=== PATIENT | male | born 1985 | race African-American/Black ===

== ENCOUNTER 2018-08-12 20:13 | Emergency (ER) | payer MEDICAID ==
[~2018-08-12] VITALS: Ht 162.6 cm; Wt 80.3 kg
[2018-08-12 21:03] LABS: APPEARANCE,URINE CLEAR; BILIRUBIN, URINE NEGATIVE (NEGATIVE); GLUCOSE, URINE (UA) NEGATIVE (NEGATIVE); KETONES,URINE 1+ (NEGATIVE); LEUKOCYTE ESTERASE ,URINE 1+ (NEGATIVE); NITRITE,URINE NEGATIVE (NEGATIVE); PH,URINE 6 (4.5-8.0); PROTEIN,URINE 1+ (NEGATIVE); UROBILINOGEN,URINE 4 MG/DL (0.0-1.0)
[2018-08-12 21:04] LABS: COLOR,URINE YELLOW
--- NOTE | 2018-08-12 21:26 | Emergency Room Report ---
History of Present Illness General Chief Complaint: Generalized Weakness Source: Patient Present Illness HPI This patient states that for the past 2 weeks he has had generalized fatigue. He states that he has been working and is okay while he is at work. However, when he gets home he is tired and fatigued constantly. He denies recent illness. He denies body aches. He denies fever or chills. He denies nausea or vomiting. He denies abdominal pain. He denies dysuria or hematuria. He denies any trauma or recent stress. He does use marijuana regularly and alcohol regularly but denies any other illicit drugs such as cocaine or methamphetamine. He has no other complaints. Allergies: Coded Allergies: No Known Allergies (Unverified , 05/16/16) Patient History Past Medical History: none, see triage record, old chart reviewed, other - Bronchitis Social History: Reports: smoking, alcohol use, drug use - THC Reviewed Nursing Documentation: PMH: Agreed; PSxH: Agreed Nursing Documentation-PMH Past Medical History: No History, Except For Review of Systems All Other Systems: negative except mentioned in HPI Physical Exam Vital Signs Date Time Temp Pulse Resp B/P (MAP) Pulse Ox O2 Delivery O2 Flow Rate FiO2 08/12/18 20:27 97.9 83 16 132/80 96 Room Air Sp02 EP Interpretation: reviewed, normal General Appearance: no apparent distress, alert, GCS 15, non-toxic Head: normocephalic, atraumatic Eyes: bilateral eye normal inspection, bilateral eye PERRL ENT: hearing grossly normal, normal pharynx, no angioedema, normal voice Neck: full range of motion, supple/symm/no masses Respiratory: chest non-tender, lungs clear, normal breath sounds, speaking full sentences Cardiovascular #1: regular rate, rhythm, no edema Gastrointestinal: normal bowel sounds, non tender, soft, non-distended, no guarding, no rebound Rectal: deferred Musculoskeletal: back normal, gait/station normal, normal range of motion, non- tender Neurologic: alert, oriented x3, responsive, motor strength/tone normal, sensory intact, speech normal Psychiatric: judgement/insight normal, memory normal, mood/affect normal, no suicidal/homicidal ideation Skin: normal color, no rash, warm/dry, well hydrated Medical Decision Making Diagnostic Impression: Primary Impression: Fatigue ER Course Patient complains of fatigue. I'm unsure of the etiology of this. Possibly depression or viral syndrome. Regardless, basic laboratory workup to include CBC, CMP, thyroid function tests and EKG are unremarkable. There is no evidence of anemia, left related abnormality, hepatitis, hypothyroidism or arrhythmia. The patient is using marijuana and alcohol regularly. Regardless, no emergency medical condition is identified. The patient instructed to follow- up with his primary care physician for further evaluation and treatment. The patient is given close return precautions and follow-up instructions. Laboratory Tests Test 08/12/18 20:35 08/12/18 21:10 Urine Color Yellow Urine Appearance Clear Urine pH 6 (4.5-8.0) Urine Specific [place] 1.020 (1.005-1.035) Urine Protein 1+ (NEGATIVE) H Urine Glucose (UA) Negative (NEGATIVE) Urine Ketones 1+ (NEGATIVE) H Urine Blood Negative (NEGATIVE) Urine Nitrite Negative (NEGATIVE) Urine Bilirubin Negative (NEGATIVE) Urine Urobilinogen 4 MG/DL (0.0-1.0) H Urine Leukocyte Esterase 1+ (NEGATIVE) H Urine RBC 0-2 /HPF (0 - 0) H Urine WBC 2-4 /HPF (0 - 0) Urine Squamous Epithelial Cells None /LPF (NONE/OCC) Urine Bacteria None /HPF (NONE) Urine Mucus Many /LPF (NONE/OCC) H Urine Opiates Screen Negative (NEGATIVE) Urine Barbiturates Screen Negative (NEGATIVE) Phencyclidine (PCP) Screen Negative (NEGATIVE) Urine Amphetamines Screen Negative (NEGATIVE) Urine Benzodiazepines Screen Negative (NEGATIVE) Urine Cocaine Screen Negative (NEGATIVE) Urine Marijuana (THC) Screen Positive (NEGATIVE) H White Blood Count 10.7 K/UL (4.8-10.8) Red Blood Count 5.73 M/UL (4.70-6.10) Hemoglobin 13.9 G/DL (14.2-18.0) L Hematocrit 43.1 % (42.0-52.0) Mean Corpuscular Volume 75 FL (80-99) L Mean Corpuscular Hemoglobin 24.3 PG (27.0-31.0) L Mean Corpuscular Hemoglobin Concent 32.3 G/DL (32.0-36.0) Red Cell Distribution Width 12.3 % (11.6-14.8) Platelet Count 260 K/UL (150-450) Mean Platelet Volume 7.0 FL (6.5-10.1) Neutrophils (%) (Auto) 47.1 % (45.0-75.0) Lymphocytes (%) (Auto) 36.2 % (20.0-45.0) Monocytes (%) (Auto) 7.3 % (1.0-10.0) Eosinophils (%) (Auto) 7.0 % (0.0-3.0) H Basophils (%) (Auto) 2.4 % (0.0-2.0) H Sodium Level 140 MMOL/L (136-145) Potassium Level 3.8 MMOL/L (3.5-5.1) Chloride Level 105 MMOL/L (98-107) Carbon Dioxide Level 26 MMOL/L (21-32) Anion Gap 9 mmol/L (5-15) Blood Urea Nitrogen 16 mg/dL (7-18) Creatinine 0.9 MG/DL (0.55-1.30) Estimate Glomerular Filtration Rate > 60 mL/min (>60) Glucose Level 102 MG/DL (74-106) Calcium Level 8.9 MG/DL (8.5-10.1) Total Bilirubin 0.2 MG/DL (0.2-1.0) Aspartate Amino Transferase (AST) 21 U/L (15-37) Alanine Aminotransferase (ALT) 29 U/L (12-78) Alkaline Phosphatase 69 U/L (46-116) Total Creatine Kinase 386 U/L (26-308) H Total Protein 7.8 G/DL (6.4-8.2) Albumin 3.6 G/DL (3.4-5.0) Globulin 4.2 g/dL Albumin/Globulin Ratio 0.9 (1.0-2.7) L Thyroid Stimulating Hormone (TSH) 3.578 uiU/mL (0.358-3.740) Free Thyroxine 0.89 NG/DL (0.76-1.46) Free Triiodothyronine 3.0 pg/mL (2.3-4.2) EKG Diagnostic Results Rate: normal Rhythm: NSR ST Segments: no acute changes Rhythm Strip Diag. Results EP Interpretation: yes Rate: 70's Rhythm: NSR, no PVC's, no ectopy Last Vital Signs Date Time Temp Pulse Resp B/P (MAP) Pulse Ox O2 Delivery O2 Flow Rate FiO2 11//18 20:27 97.9 83 16 132/80 96 Room Air Status: improved Disposition: HOME, SELF-CARE Condition: Improved Referrals: [facility],REFERRING (PCP) Susanne Aceves DO Aug 12, 2018 21:26
[2018-08-12 21:27] LABS: BASOPHILS % (AUTO) 2.4 % (0.0-2.0); HEMATOCRIT 43.1 % (42.0-52.0); HEMOGLOBIN 13.9 G/DL (14.2-18.0); LYMPHOCYTES % (AUTO) 36.2 % (20.0-45.0); MEAN CORPUSCULAR VOLUME 75 FL (80-99); MONOCYTES % (AUTO) 7.3 % (1.0-10.0); NEUTROPHILS % (AUTO) 47.1 % (45.0-75.0); PLATELET COUNT 260 K/UL (150-450); RED BLOOD COUNT 5.73 M/UL (4.70-6.10); RED CELL DISTRIBUTION WIDTH 12.3 % (11.6-14.8); WHITE BLOOD COUNT 10.7 K/UL (4.8-10.8)
[2018-08-12 21:30] VITALS: BP 134/74
[2018-08-12 21:39] LABS: ANION GAP 9 mmol/L (5-15); BLOOD UREA NITROGEN 16 mg/dL (7-18); CALCIUM 8.9 MG/DL (8.5-10.1); CARBON DIOXIDE 26 MMOL/L (21-32); CHLORIDE 105 MMOL/L (98-107); CREATININE 0.9 MG/DL (0.55-1.30); POTASSIUM 3.8 MMOL/L (3.5-5.1); SODIUM 140 MMOL/L (136-145)
[2018-08-12 21:44] LABS: ALANINE AMINOTRANSFERASE 29 U/L (12-78); ALBUMIN 3.6 G/DL (3.4-5.0); ALBUMIN/GLOBULIN RATIO 0.9 (1.0-2.7); ALKALINE PHOSPHATASE 69 U/L (46-116); ASPARTATE AMINO TRANSFERASE 21 U/L (15-37); BILIRUBIN,TOTAL 0.2 MG/DL (0.2-1.0); CREATINE KINASE 386 U/L (26-308)
[2018-08-12 22:35] VITALS: BP 134/74
--- NOTE | 2018-08-15 15:19 | Cardiology Report ---
APPROVED REPORT EKG Measurement Heart [id number] Normal sinus rhythm Nonspecific ST and T wave abnormality Abnormal ECG
== END 2018-08-12 22:35 | disposition home or self-care (01) ==
LOC: EMR 20:44
DX: R53.83 Other fatigue (principal); R53.1 Weakness; F12.90 Cannabis use, unspecified, uncomplicated; Z72.89 Other problems related to lifestyle; F17.200 Nicotine dependence, unspecified, uncomplicated
CPT/HCPCS: 36415; 80053; 80307; 81003; 82550; 84439; 84443; 84481; 85025; 93005; 99283

== ENCOUNTER 2019-07-11 18:01 | Emergency (ER) | payer MEDICAID ==
[~2019-07-11] VITALS: Ht 160 cm; Wt 81.2 kg
--- NOTE | 2019-07-11 18:20 | NUR ---
ED Nurse Note: pt walked in to ED deu to pain on penis since last night. per pt "sleep with condom and scratched" will assess with PA when private exam room is available.
[2019-07-11 18:21] VITALS: BP 160/89
[2019-07-11 18:48] VITALS: BP 155/70
--- NOTE | 2019-07-11 18:50 | NUR ---
ER DISCHARGE NOTE: Patient is cleared to be discharged per ERMD, pt is aox4, on room air, with stable vital signs. pt was given dc instructions, pt was able to verbalize understanding, pt id band removed without complications. pt is able to ambulate with steady gait. pt took all belongings.
--- NOTE | 2019-07-11 19:02 | Emergency Room Report ---
History of Present Illness General Chief Complaint: Male Urogenital Problems Source: Patient Present Illness HPI 34-year-old male brought in by self complaining of wound on penis x1 week. Patient states that he left a condom on overnight and took it off the next morning. Has been applying Neosporin to affected area. Denies fever, dysuria, penile discharge. Allergies: Coded Allergies: No Known Allergies (Unverified , 05/16/16) Patient History Past Medical History: see triage record Reviewed Nursing Documentation: PMH: Agreed; PSxH: Agreed Nursing Documentation-PMH Past Medical History: No History, Except For Review of Systems All Other Systems: negative except mentioned in HPI Physical Exam Vital Signs Date Time Temp Pulse Resp B/P (MAP) Pulse Ox O2 Delivery O2 Flow Rate FiO2 07/11/19 18:10 98.2 100 18 160/89 (112) 95 Room Air Sp02 EP Interpretation: reviewed General Appearance: no apparent distress, alert, GCS 15, non-toxic Respiratory: chest non-tender, lungs clear, normal breath sounds, speaking full sentences Cardiovascular #1: regular rate, rhythm, no edema Genitourinary: other - small abrasion on dorsum of penis, no surrounding erythema or edema, no discharge. Andreas JIMENEZ present bedside developer evangelist Medical Decision Making PA Attestation This patient was seen under the direct supervision of Dr. Santiago, who directed all aspects of care and diagnostic interpretation. Diagnostic Impression: Primary Impression: Abrasion ER Course ED course HPI: 34-year-old male brought in by self complaining of wound on penis x1 week. Patient states that he left a condom on overnight and took it off the next morning. Has been applying Neosporin to affected area. Denies fever, dysuria, penile discharge. Ddx: skin abrasion, Cellulitis, dermatitis HPI & PE consistent with: Skin abrasion Orders/ Interventions: None. Wound is healing well without signs and symptoms of infection. Advised patient to continue using Neosporin to affected area. Disposition: At this time pt. is stable for d/c to home. Will provide printed patient care instructions, and any necessary prescriptions. Care plan and follow up instructions have been discussed with the patient prior to discharge. Please note that this Emergency Department Report was dictated using [employer] helper technology software, occasionally this can lead to erroneous entry secondary to interpretation by the dictation equipment. Last Vital Signs Date Time Temp Pulse Resp B/P (MAP) Pulse Ox O2 Delivery O2 Flow Rate FiO2 07/11/19 18:48 98.0 98 16 155/70 99 Room Air Status: improved Disposition: HOME, SELF-CARE Condition: Stable Patient Instructions: Abrasion, [id number] Additional Instructions: Continue with Neosporin. Follow-up with PCP in 2 days or return to ER if worsening symptoms, new symptoms or sudden change in condition. Delaney Navarro Jul 11, 2019 19:02
== END 2019-07-11 18:48 | disposition home or self-care (01) ==
LOC: EMR 18:42
DX: S30.812A Abrasion of penis, initial encounter (principal); X58.XXXA Exposure to other specified factors, initial encounter; Y92.9 Unspecified place or not applicable
CPT/HCPCS: 99282